=== PATIENT | female | born 1965 | race Caucasian/White ===

== ENCOUNTER 2020-11-04 20:51 | Emergency (ER) | payer BC ==
[~2020-11-04] VITALS: Ht 170.2 cm; Wt 59.0 kg
--- NOTE | 2020-11-04 22:00 | NUR ---
PATIENT BIBSELF C/O LEFT FOOT SWOLLEN SINCE 7PM. PATIENT IS A/O X 4, RR EVEN AND UNLABORED, NO SOB NOTED. PATIENT CONNECTED TO MONITOR, VSS.
[2020-11-04] MEDS ORDERED: HYDR-4303 PO (23:00)
[2020-11-04] MEDS ORDERED: IBUP-1955 PO (23:00)
[2020-11-05 00:25] VITALS: BP 121/68
--- NOTE | 2020-11-05 00:42 | NUR ---
Patient discharged to home in stable condition. Written and verbal after care instructions given. Patient verbalizes understanding of instruction.
== END 2020-11-05 00:42 | disposition home or self-care (01) ==
LOC: ER 20:51
DX: S92.355A Nondisplaced fracture of fifth metatarsal bone, left foot, initial encounter for closed fracture (principal); Z79.899 Other long term (current) drug therapy; X50.1XXA Overexertion from prolonged static or awkward postures, initial encounter; Y93.89 Activity, other specified; Y92.89 Other specified places as the place of occurrence of the external cause; Y99.8 Other external cause status
CPT/HCPCS: 73630-TC